=== PATIENT | male | born 1985 | race Two or more races ===

== ENCOUNTER 2024-03-08 13:08 | Emergency (ER) | payer SELFPAY ==
[2024-03-08 13:11] VITALS: BP 138/94
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
[2024-03-08] MEDS: TYLENOL 650 MG PO (14:25)
== END 2024-03-08 17:23 | disposition home or self-care (01) ==
LOC: EMR 13:08
PROVIDERS: EMERGENCY PHYSICIAN Student in an Organized Health Care Education/Training Program
DX: S16.1XXA Strain of muscle, fascia and tendon at neck level, initial encounter (principal); V43.52XA Car driver injured in collision with other type car in traffic accident, initial encounter; Y92.410 Unspecified street and highway as the place of occurrence of the external cause
CPT/HCPCS: 99284; 70450; 72040; 72190